=== PATIENT | female | born 1960 | race Caucasian/White ===

== ENCOUNTER 2016-08-18 22:46 | Emergency (ER) | payer BC, MEDICAID ==
[~2016-08-18] VITALS: Ht 172.7 cm; Wt 108.9 kg
[~2016-08-18 22:46] MED LIST: ANAS1TAB NG; HYDR1TAB PO; IBUP200C5 PO
[2016-08-18] MEDS ORDERED: HYDROCODONE/APAP 5/325MG 1 EACH TABLET ONE (23:53)
[2016-08-18] MEDS ORDERED: ONDANSETRON HCL/PF 4 MG/2 ML VIAL ONE (23:54)
[2016-08-19] MEDS ORDERED: HYDROCODONE/APAP 5/325MG 1 EACH TABLET PO ONE
[2016-08-19] MEDS ORDERED: ONDANSETRON HCL/PF 4 MG/2 ML VIAL IV ONE
[2016-08-19 00:22] LABS: BASOPHILS % (AUTO) 0.4 % (0.0-2.0); DIFF TOTAL % 100 %; EOSINOPHILS # (AUTO) 0.3 /CMM (0.0-0.7); EOSINOPHILS % (AUTO) 3.1 % (0.0-6.0); HEMATOCRIT 40 % (33-45); HEMOGLOBIN 13.1 g/dL (11.5-14.8); LYMPHOCYTES # (AUTO) 3.3 /CMM (0.8-4.8); LYMPHOCYTES % (AUTO) 37.3 % (20.0-44.0); MEAN CORPUSCULAR HEMOGLOBIN 30 PG (26.0-33.0); MEAN CORPUSCULAR HGB CONC 33 g/dl (31.0-36.0); MEAN CORPUSCULAR VOLUME 89 fL (82-100); MONOCYTES % (AUTO) 11.5 % (2.0-12.0); NEUTROPHILS # (AUTO) 4.2 /CMM (1.8-8.9); NEUTROPHILS % (AUTO) 47.7 % (43.0-81.0); PLATELET COUNT (AUTO) 257 /CMM (150-450); RED BLOOD CELL COUNT(AUTO) 4.46 MIL/uL (4.0-5.2); WHITE BLOOD COUNT (AUTO) 8.9 K/uL (4.3-11.0)
[2016-08-19 00:31] LABS: CALCIUM, SERUM 9.2 mg/dL (8.5-10.1); CREATININE 0.8 mg/dL (0.6-1.3); POTASSIUM 3.7 mmol/L (3.5-5.1)
[2016-08-19] MEDS ORDERED: IV NS 0.9% 1,000 ML ONE (00:32)
[2016-08-19] MEDS ORDERED: IV SET PRIMARY 1 EA INFUS.SET MC ONE (00:32)
[2016-08-19 00:35] LABS: INR 1.06 (0.87-1.13); PROTHROMBIN TIME 11.5 SECS (9.5-12.7)
[2016-08-19] MEDS ORDERED: CT SWABBABLE VALVE TRANS SET 1 EA INFUS.SET MC ONE (00:37)
[2016-08-19] MEDS ORDERED: IOHEXOL-300 100 ML VIAL IV ONE (00:37)
[2016-08-19] MEDS ORDERED: IV NS 0.9% 250 ML IV ONE (00:37)
[2016-08-19] MEDS ORDERED: IV NS 0.9% 1,000 ML BAG IV ONE (01:00)
[2016-08-19 02:00] VITALS: BP 135/75
== END 2016-08-19 02:03 | disposition home or self-care (01) ==
LOC: ER 22:52
DX: M54.30 Sciatica, unspecified side (principal); M79.605 Pain in left leg; K57.30 Diverticulosis of large intestine without perforation or abscess without bleeding
CPT/HCPCS: 36415; 72132; 80048; 85025; 85730; 96361; 96374; 99285; A4606; J2405; J7030; J7050; Q9967; Z7610

== ENCOUNTER 2017-05-08 22:44 | Inpatient (IN) | payer BC ==
[~2017-05-08] VITALS: Ht 172.7 cm; Wt 113.0 kg
[2017-05-08] VITALS: BP 132/74
--- NOTE | 2017-05-08 22:48 | NUR ---
PT BIB SON C/O BACK PAIN, NOW RADIATING TO CHEST AND LEFT LEG. HX RIGHT SIDE MASTECTOMY. PT AOX3 RR EVEN AND UNLABORED. NO SOB NOTED. NAD NOTED. NO NVD AT THIS TIME. PT GOWNED AND PLACED ON MONITOR WAITING FOR MD SERRA.
[2017-05-08] MEDS ORDERED: IOHEXOL-350 100 ML VIAL IV ONE (22:59)
[2017-05-08] MEDS ORDERED: CT SWABBABLE VALVE TRANS SET 1 EA INFUS.SET MC ONE (22:59)
[2017-05-08] MEDS ORDERED: IV NS 0.9% 250 ML IV ONE (23:00)
[2017-05-08] MEDS ORDERED: MORPHINE SULFATE INJ 2 MG/ML DISP.SYRIN IV ONE (23:00)
[2017-05-08] MEDS ORDERED: ONDANSETRON HCL/PF 4 MG/2 ML VIAL IV ONE (23:00)
[2017-05-08] MEDS ORDERED: ASPIRIN 81 MG TAB.CHEW PO ONE (23:00)
[2017-05-08] MEDS ORDERED: ONDANSETRON HCL/PF 4 MG/2 ML VIAL ONE (23:16)
[2017-05-08] MEDS ORDERED: MORPHINE SULFATE INJ 10 MG/ML DISP.SYRIN ONE (23:17)
[2017-05-08 23:19] LABS: BASOPHILS % (AUTO) 0.3 % (0.0-2.0); EOSINOPHILS # (AUTO) 0.2 /CMM (0.0-0.7); EOSINOPHILS % (AUTO) 2.6 % (0.0-6.0); HEMATOCRIT 40 % (33-45); HEMOGLOBIN 13.3 g/dL (11.5-14.8); LYMPHOCYTES # (AUTO) 3.5 /CMM (0.8-4.8); LYMPHOCYTES % (AUTO) 43.7 % (20.0-44.0); MEAN CORPUSCULAR HEMOGLOBIN 30 PG (26.0-33.0); MEAN CORPUSCULAR HGB CONC 34 g/dl (31.0-36.0); MEAN CORPUSCULAR VOLUME 90 fL (82-100); MONOCYTES # (AUTO) 0.9 /CMM (0.1-1.30); MONOCYTES % (AUTO) 11.1 % (2.0-12.0); NEUTROPHILS # (AUTO) 3.4 /CMM (1.8-8.9); NEUTROPHILS % (AUTO) 42.3 % (43.0-81.0); PLATELET COUNT (AUTO) 274 /CMM (150-450); RDW COEFFICIENT OF VARIATION 13.4 (11.5-15.0); WHITE BLOOD COUNT (AUTO) 8.1 K/uL (4.3-11.0)
[2017-05-08] MEDS ORDERED: ASPIRIN 81 MG TAB.CHEW ONE (23:19)
[2017-05-08 23:28] LABS: CALCIUM, SERUM 8.9 mg/dL (8.5-10.1); CARBON DIOXIDE 27 mmol/L (21-32); CHLORIDE 107 mmol/L (98-107); CREATININE 0.8 mg/dL (0.6-1.3); GLUCOSE 111 mg/dL (74-106); POTASSIUM 3.6 mmol/L (3.5-5.1); SODIUM SERUM 142 mmol/L (136-145); UREA NITROGEN, BLOOD 22 mg/dL (7-18)
[2017-05-08 23:32] LABS: D-DIMER 0.24 mg/L(FEU (0.17-0.50); INR 1.03 (0.87-1.13); PROTHROMBIN TIME 10.7 SECS (9.5-12.7)
[2017-05-08 23:35] LABS: TROPONIN I < 0.017 ng/mL (0.00-0.056)
[2017-05-08 23:41] LABS: ALANINE AMINOTRANSFERASE 29 U/L (12-78); ALBUMIN 3.4 g/dL (3.4-5.0); ALKALINE PHOSPHATASE 63 U/L (46-116); ASPARTATE AMINOTRANSFERASE 18 U/L (15-37); B-TYPE NATRIURETIC PEPTIDE 69 PG/ML (0-125); BILIRUBIN,TOTAL 0.2 mg/dL (0.2-1.0); TOTAL PROTEIN, SERUM 7.4 g/dL (6.4-8.2)
--- NOTE | 2017-05-08 23:45 | NUR ---
pt transported to radiology for CTA Chest and CTA ABD/Pelvis r/o dissection.
--- NOTE | 2017-05-09 00:29 | NUR ---
DR. ROMERO SPEAKING TO PT REGARDING RESULTS.
--- NOTE | 2017-05-09 01:21 | NUR ---
WOLF CARPENTER AT BEDSIDE FOR EVAL.
--- NOTE | 2017-05-09 01:28 | NUR ---
REPORT GIVEN TO LULU ARCE FOR TELE BED 321-2
[2017-05-09] MEDS ORDERED: ENAL10TA PO (01:32)
--- NOTE | 2017-05-09 01:40 | NUR ---
TELE/RN NOTES RECEIVED PT. FROM ER VIA MARY. PT. IS AWAKE, ALERT AND ORIENTED X4. BREATHING EVEN AND UNLABORED. NO SOB, RESPIRATORY DISTRESS OR COMPLAINTS OF PAIN NOTED AT THIS TIME. NO COMPLAINTS OF CHEST PAIN NOTED AT THIS TIME. PT. WITH LEFT AC 18 GAUGE IV SALINE LOCK PRESENT, PATENT AND INTACT. ORIENTED PT. TO ROOM. PLACED EXTERNAL NETWORK INTELLIGENCE ANALYST ON PT. CURRENT RHYTHM = SINUS RHYTHM HR 64. AWAITING ADMITTING ORDERS. BED LOCKED AND IN LOWEST POSITION, SIDE RAILS UP X2, CALL LIGHT WITHIN REACH, WILL CONTINUE TO MONITOR.
--- NOTE | 2017-05-09 01:46 | NUR ---
PT TRANSFERRED PER [employer].
[2017-05-09] MEDS ORDERED: IV NS 0.9% 1,000 ML IV PRN (02:13)
[2017-05-09] MEDS ORDERED: MAGNESIUM HYDROXIDE 30 ML UDC PO PRN (02:30)
[2017-05-09] MEDS ORDERED: ACETAMINOPHEN 325 MG TABLET PO PRN (02:30)
[2017-05-09] MEDS ORDERED: ONDANSETRON HCL/PF 4 MG/2 ML VIAL IVP PRN (02:30)
[2017-05-09] MEDS ORDERED: ZOLPIDEM TARTRATE 5 MG TABLET PO PRN (02:30)
[2017-05-09] MEDS ORDERED: NITROGLYCERIN 0.4 MG/TAB BOTTLE SL PRN (02:30)
[2017-05-09] MEDS ORDERED: MAG HYDROX/AL HYDROX/SIMETH 30 ML UDC PO PRN (02:30)
[2017-05-09] MEDS ORDERED: HYDROCODONE/APAP 5/325MG 1 EACH TABLET PO PRN (02:30)
[2017-05-09] MEDS ORDERED: ENOXAPARIN SODIUM 40 MG/0.4 ML DISP.SYRIN SQ SCH ×2 (02:30→07:56)
[2017-05-09] MEDS ORDERED: ENOXAPARIN SODIUM 40 MG/0.4 ML DISP.SYRIN SQ ONE (02:38)
[2017-05-09 04:17] VITALS: BP 123/74
--- NOTE | 2017-05-09 06:58 | NUR ---
TELE/RN NOTES PT. IS LYING IN BED RESTING. BREATHING EVEN AND UNLABORED ON ROOM AIR. NO SOB, RESPIRATORY DISTRESS OR COMPLAINTS OF PAIN NOTED AT THIS TIME. NO COMPLAINTS OF CHEST PAIN NOTED AT THIS TIME AND THROUGHOUT SHIFT. PT. WITH LEFT AC 18 GAUGE PERIPHERAL IV PRESENT, PATENT AND INTACT ADMINISTERING TO PT. NS @ 75ML/HR. PT. WITH EXTERNAL AUTO PARTS CLERK PRESENT AND INTACT CURRENT RHYTHM = SINUS RHYTHM HR 69. ALL PT. NEEDS MET. BED LOCKED AND IN LOWEST POSITION, SIDE RAILS UP X2, CALL LIGHT WITHIN REACH, WILL ENDORSE TO DAYSHIFT NURSE FOR CONTINUITY OF CARE.
[2017-05-09 07:01] VITALS: BP 134/76
[2017-05-09] MEDS ORDERED: PANTOPRAZOLE 40 MG TABLET.DR PO SCH (07:30)
[2017-05-09 08:00] VITALS: BP 136/80
[2017-05-09] MEDS ORDERED: REGADENOSON 0.4 MG/5 ML DISP.SYRIN IVP ONE (08:00)
--- NOTE | 2017-05-09 08:10 | NUR ---
CREDIT CONTROL MANAGER NOTES RECEIVED PATIENT IN BED, AWAKE. A/O X4. ON TELE MONITOR SINUS BERNY HR 59. IVF NS INFUSING AT 75ML/HR, NO SOB. BREATHING EVEN AND NON LABORED, ON ROOM AIR. PATIENT WILL HAVE LEXISCAN TODAY ORDERED BY DR. MEYER/CARDIO. INSTRUCTED PATIENT NOT TO EAT AND DRINK UNTIL PROCEDURE IS DONE, VERBALIZED UNDERSTANDING. CALL LIGHT WITHIN REACH. WILL CONT TO MONITOR.
[2017-05-09 08:29] LABS: MAGNESIUM 2.1 mg/dL (1.8-2.4)
[2017-05-09 08:30] LABS: TROPONIN I < 0.017 ng/mL (0.00-0.056)
[2017-05-09 08:38] LABS: CHOLESTEROL 226 mg/dL (<200); HDL CHOLESTEROL 47 mg/dL (40-60); LDL 153 mg/dL (0-99); THYROID STIMULATING HORMONE 4.621 uIU/mL (0.358-3.74); TRIGLYCERIDES 126 mg/dL (30-150)
[2017-05-09] MEDS ORDERED: ENALAPRIL MALEATE (10 MG) 10 MG TABLET PO SCH (09:00)
[2017-05-09] MEDS ORDERED: CARVEDILOL 12.5 MG TABLET PO SCH (09:00)
[2017-05-09] MEDS ORDERED: ASPIRIN 81 MG TAB.CHEW PO SCH (09:00)
--- NOTE | 2017-05-09 10:18 | NUR ---
PATIENT OFF TO RADIOLOGY DEPT FOR NM MYOCARDIAL STRESS TEST.
[2017-05-09 16:00] VITALS: BP 129/78
--- NOTE | 2017-05-09 17:38 | NUR ---
Patient lives with her family. She is ambulatory and independent with adl's. Has good family support. Discussed with REMOTE BROADCAST ENGINEER- will dc home once stress test is negative. Addendum: 05/09/17 at 1738 by DEB CAMACHO RN Amended: Links added.
--- NOTE | 2017-05-09 18:03 | NUR ---
REVIEWED FLU AND PNA VACCINATION STATUS WITH THE PATIENT. PATIENT REFUSED VACCINES, EDUCATION GIVEN, RISK AND BENEFITS, PATIENT PREFERS NOT TO BE VACCINATED. VACCINATION STATUS UPDATED.
--- NOTE | 2017-05-09 18:26 | NUR ---
MS RN CLOSING NOTES PATIENT IN BED, A/O X4. NO EPISODE OF CHEST PAIN DURING THE SHIFT. IVF NS INFUSING AT 75ML/HR, TOLERATING WELL, NO SOB. CALL LIGHT WITHIN REACH. POSSIBLE DISCHARGE HOME TODAY, PER WOLF CARPENTER HE WILL COME AND SPEAK TO THE PATIENT. WILL ENDORSE TO CLINICAL NURSE EDUCATOR RN FOR INGRID.
--- NOTE | 2017-05-09 19:00 | NUR ---
MS RN OPENING NOTES: RECEIVED PT IN BED AND IS A/OX4. NO EPISODE OF CHEST PAIN OR S/S OF DISTRESS AT THIS TIME. PT HAS IV ON L AC #18G AND IS PATENT AND INTACT. PT ANTICIPATING TO GO HOME. CALL LIGHT WITHIN PT'S REACH. BED KEPT IN LOW, LOCKED POSITION, AND SIDE RAILS X 2 UP. WILL CONTINUE TO MONITOR PT.
--- NOTE | 2017-05-09 19:15 | NUR ---
MS RN NOTES: WOLF CARPENTER AT BEDSIDE.
[2017-05-09 20:00] VITALS: BP 124/78
--- NOTE | 2017-05-09 20:20 | NUR ---
MS LAWSON NOTES: PT LEFT IN STABLE CONDITION. Addendum: 05/09/17 at 2041 by MORENA HARGROVE RN PT DISCHARGED TO HOME. ESCORTED DOWNSTAIRS WITH FILM HISTORIAN AND DAUGHTER IS DOWNSTAIRS IN LOBBY WAITING FOR HER.
[2017-05-09] MEDS ORDERED: DOXAZOSIN MESYLATE (1 MG) 1 MG TABLET PO SCH (22:00)
== END 2017-05-09 20:20 | disposition home or self-care (01) | DRG 203 ==
LOC: ER 22:48 → TELE 05-09 01:18 → MED 05-09 10:08
PROVIDERS: ADMIT Nurse Practitioner Acute Care; ATTEND Nurse Practitioner Acute Care
DX: M94.0 Chondrocostal junction syndrome [Tietze] (principal); E88.81 Metabolic syndrome and other insulin resistance; I10 Essential (primary) hypertension; E78.5 Hyperlipidemia, unspecified; K57.90 Diverticulosis of intestine, part unspecified, without perforation or abscess without bleeding; Z90.11 Acquired absence of right breast and nipple; Z85.3 Personal history of malignant neoplasm of breast; Z98.82 Breast implant status; Z68.37 Body mass index [BMI] 37.0-37.9, adult; R73.9 Hyperglycemia, unspecified; Z91.048 Other nonmedicinal substance allergy status; E66.9 Obesity, unspecified
CPT/HCPCS: 36415; 71010-TC; 80048-TC; 80061-TC; 80076-TC; 82306; 83735-TC; 83880; 84100-TC; 84439-TC; 84443-TC; 84484-TC; 85025-TC; 85378-TC; 85730-TC; 86850-TC; 87081-TC; 93307-TC; A9502; J1650; J2270; J2405; J2785; J7030; J7050; Q9967